=== PATIENT | male | born 1980 ===

== ENCOUNTER 2019-07-29 21:02 | Emergency (ER) | payer MEDICAID ==
[~2019-07-29] VITALS: Ht 177.8 cm; Wt 75.0 kg
[2019-07-29] MEDS ORDERED: ONDANSETRON HCL 4MG/2ML INJ IV ONE (23:45)
[2019-07-29] MEDS ORDERED: MORPHINE SULFATE 4 MG/ML CPJ (NOT FOR IM USE) IV ONE (23:45)
[2019-07-29] MEDS ORDERED: PROPOFOL 200MG/20ML VIAL IV ONE (23:45)
[2019-07-30] MEDS ORDERED: IBUPROFEN 800MG TABLET PO ONE (08:45)
[2019-07-30 09:32] VITALS: BP 150/93
== END 2019-07-30 09:37 | disposition home or self-care (01) ==
LOC: ER 21:02
DX: S53.014A Anterior dislocation of right radial head, initial encounter (principal); F12.10 Cannabis abuse, uncomplicated; F17.200 Nicotine dependence, unspecified, uncomplicated; X58.XXXA Exposure to other specified factors, initial encounter; Y93.39 Activity, other involving climbing, rappelling and jumping off; Y92.89 Other specified places as the place of occurrence of the external cause; Y99.8 Other external cause status
CPT/HCPCS: 24600; 73060; 73070; 73090; 96374; 96375; 99152; 99285; J2270; J2405; J2704; A4565

== ENCOUNTER 2019-08-05 11:10 | Emergency (ER) | payer MEDICAID ==
[~2019-08-05] VITALS: Ht 172.7 cm; Wt 70.0 kg
[2019-08-05 11:41] VITALS: BP 128/73
== END 2019-08-05 12:49 | disposition home or self-care (01) ==
LOC: ER 11:10
DX: S52.121A Displaced fracture of head of right radius, initial encounter for closed fracture (principal); F12.10 Cannabis abuse, uncomplicated; X58.XXXA Exposure to other specified factors, initial encounter; Y93.89 Activity, other specified; Y92.89 Other specified places as the place of occurrence of the external cause; Y99.8 Other external cause status
CPT/HCPCS: 25675; 99284